=== PATIENT | female | born 1995 | race Caucasian/White ===

== ENCOUNTER 2020-10-11 04:31 | Inpatient (IN) | payer BC, SELFPAY ==
[2020-10-11] VITALS (22 sets, daily range): BP systolic 103–167; BP diastolic 42–83; PULSE 73–141; RESP 12–18; TEMP 36–37.3; O2SAT 95–99; BMI 32.2
[2020-10-11] MEDS: Lactated Ringers 1,000 ML 200 ML IV (04:59)
[2020-10-11 05:09] LABS: Absolute Lymphocyte Count 0.71 X10^3/uL (0.83-4.51); Absolute Neutrophil Count 17.1 X10^3/uL (2.0-7.7); Basophil# 0.04 X10^3/uL; Basophil% 0.2 % (0-1); Hematocrit 36.9 % (37-47); Lymphocyte # 0.71 X10^3/ul (0.83-4.51); Lymphocyte % 3.8 % (19-41); Mean Corp Hgb Conc 32.5 g/dL (32-36); Mean Corpuscular Hgb 29.1 pg (27.0-32.0); Mean Corpuscular Volume 89.3 fL (81-99); Mean Platelet Vol. 11.4 fl (6.2-12.0); Monocyte# 0.51 X10^3/uL; Monocyte% 2.7 % (0-10); NRBC Flagged by Analyzer 0 % (0-5); Neutrophil # 17.06 X10^3/uL (2.7-7.7); Neutrophil % 92.1 % (47-70); Platelet Count 190 K/mm3 (150-450); RBC Distribution Width CV 14.1 % (11.6-14.6); Red Blood Count 4.13 M/mm3 (4.2-5.4); White Blood Count 18.6 K/mm3 (4.4-11.0)
--- NOTE | 2020-10-11 05:47 | PCM.HP.OB ---
History Date of Admission: 10/11/20 Final BARAK: 10/13/20 Gestational age: 39 Weeks and 5 Days History of this : This is a 25 year-old female presents with ctxs. Allergies No Known Allergies Allergy (Verified 10/11/20 04:53) Alcohol: None Substance Use Type: Marijuana Number of Fetus(es): 1 NST - FHR Rate Baby A Baseline: 145 Variability:: Moderate Accelerations:: 15 x 15 Decelerations:: Variable Uterine Activity:: Q 2minutes History Past Pregnancies: Past Pregnancies Delivery Date Name GA/ Weeks Outcome Route Wt Infant Sex Labor Length Anesthesia Delivery Location Provider FOB Labs: See [facility] H[facility]P Physical Exam Vitals: Vital Signs Temp Pulse BP Pulse Ox 98.6 F 86 167/83 H 99 10/11/20 05:02 10/11/20 05:04 10/11/20 05:04 10/11/20 05:02 General: Alert, Oriented x3 Abdomen: Soft, Non Tender, Non-Distended, Gravid TELEVISION PRODUCER: Normal external genitalia Estimated gestational size: Appropriate for gestational size Presentation: Cephalic Cervix Dilation (cm): 10 Station: 1 Effacement (%): 100 Assessment/Plan This is a 25 year-old at 39&5 weeks gestational age. Admit to L&D Expectant management - patient complete & pushing Pain - declines epidural or other pain medications EFW - less than 4500g, patient with adequate pelvis GBS negative
[2020-10-11 06:52] LABS: International Normalized Ratio 1.1; Prothrombin Time (Protime)PT. 13.5 SECONDS (11.7-14.9)
[2020-10-11 06:53] LABS: Partial Thromboplast Time 24.6 Seconds (24.1-36.2)
[2020-10-11 07:06] LABS: AST(SGOT) 26 U/L (15-37); Alanine Aminotransfer ALT/SGPT 28 U/L (13-56); Creatinine, Serum 0.87 mg/dL (0.55-1.02); EST Glomerular Filtration Rate 84 mL/min (>60); Est Glom Filt Rate - Afr Amer 102 mL/min (>60); Estimated Creatinine Clearance 84.62 ml/min; Uric Acid 4.9 mg/dL (2.6-6.0)
--- NOTE | 2020-10-11 07:55 | PCM.OPRPT ---
Report of Operation Surgery/Procedure Performed:: Primary low transverse section Description of Surgical Findings:: Normal maternal uterus and adnexa Delivery Classification: KEREN Final BARAK: 10/13/20 Gestational age: 39 Weeks and 5 Days qa developer: Maite Gee Type of Anesthesia:: Spinal Date of Procedure: 10/11/20 Pre-Operative Diagnosis: (1) Failure to descend (2) bradycardia Post-Operative Diagnosis: Same Indications: Patient presented in labor. She was complete shortly after admission. She pushed for 3 hours with no head descent. Indications for : Failure of Descent Description of Procedure: Patient taken to OR where spinal anesthesia was placed. She was placed in the dorsal supine position with a leftward tilt. Unable to doppler FHR so TAUS was performed that showed FHR less than 100. Proceeded to perform STAT . Patient was quickly prepped & draped. After ensuring adequacy of anesthesia the Pfannensteil skin incision was made and carried through the underlying fascia. The rectus muscles were in the midline and the peritoneum was entered bluntly. The uterine incision was made with the scalpel and extended laterally w/ blunt dissection. The fetus was vertex and the head was brought to the incision in the flexed position. With good fundal pressure the head easily delivered. head was gently guided to allow delivery of anterior & posterior shoulders. No excess traction placed on head. Body delivered easily. The 3V cord was clamped & cut and the handed off to waiting RN. The placenta was delivered w/ gentle traction and fundal massage and the uterus was exteriorized and cleared of all clots and debris. The uterine incision was closed with 1 vicryl suture in a running locked fashion. A second layer monocryl was used to imbricate the first layer and obtain hemostasis. The uterus was returned to the peritoneal cavity which was cleared of all clots and debris. Pelvis was irrigated. The uterine incision was reexamined and found to be hemostatic. Some marilee was placed over the uterine incision due to the denuded areas. The parietal peritoneum was reapproximated with running vicryl suture. The fascia was closed with looped PDS suture in a running standard fashion. The subcutaneous tissue was examined, any bleeding bovie cauterized. The subcutaneous tissue was reapproximated with plain gut suture. The skin was closed in a subcuticular fashion by the AQUACULTURE AND FISHERIES PROFESSOR with me present in the labor and delivery suite. I performed the remainder of the procedure w/ assistance. Start time: 8:32 Stop time: 9:08 Amniotic Membrane Rupture Type: Spontaneous Amniotic Fluid Description: Clear Placenta Disposition: [facility] Drain: Anaya to straight drain Fluids Replaced: 1300ml Cord Entanglement: Around neck x 1, tight Nuchal Cord Compression: Without compression Cord Vessel Description: 3 Vessels Esitmated Blood Loss (ml): 900ml Gender: Female - Dara (1 minute): 8 (5 minute): 9 Delayed cord clamping: Yes Antibiotic Given: Ancef 2 grams IV x1, Zithromax 500 mg/5 mL X1 Complications: None - Admit VTE Documentation VTE Present on Admission: No VTE Mechan Device Prophylaxis: SCD's VTE Pharm Prophylaxis ordered?: Yes
[2020-10-11] MEDS: Acetaminophen 500 MG Tablet PO (07:59)
[2020-10-11] MEDS: Sodium Citrate/Citric Acid 30 ML UDC PO (07:59)
[2020-10-11] MEDS: Cefazolin 2 GM in 0.9% Normal Saline 100 ML IV (08:21)
[2020-10-11] MEDS: Ketorolac 30 MG/ML Syringe IV ×3 (10:15→22:33)
--- NOTE | 2020-10-11 10:40 | NURSING ---
Date and time of SROM unknown. Patient denies leaking of fluid while at home in labor. She denies noting any vaginal leaking of fluid in the past few days. When patient arrived to hospital in labor, her membranes had already been ruptured.
[2020-10-11] MEDS: Oxytocin 30 units/NS 500 ml 30 UNITS/500 ML IV.SOLN 167 UNITS IV (10:52)
[2020-10-11] MEDS: Lactated Ringers 1,000 ML 100 ML IV (14:10)
[2020-10-11] MEDS: Acetaminophen 500 MG Tablet 1000 MG PO ×2 (14:18→20:45)
[2020-10-11] MEDS: Enoxaparin 40 MG/0.4 ML Syringe SC (20:45)
[2020-10-12 00:51] VITALS: BP 129/62; PULSE 87; RESP 18; O2SAT 98
[2020-10-12] MEDS: Acetaminophen 500 MG Tablet 1000 MG PO ×3 (02:28→14:37)
[2020-10-12] MEDS: 0.9% Saline Lock 10 ML Syringe IV (04:04)
[2020-10-12] MEDS: Ketorolac 30 MG/ML Syringe IV (04:04)
[2020-10-12 04:09] VITALS: BP 115/43; PULSE 87; RESP 18; TEMP 36.6; O2SAT 95
[2020-10-12 04:31] LABS: Hematocrit 31.1 % (37-47); Hemoglobin 10.2 g/dL (12.0-15.0); Mean Corp Hgb Conc 32.8 g/dL (32-36); Mean Corpuscular Hgb 29.2 pg (27.0-32.0); Mean Corpuscular Volume 89.1 fL (81-99); Mean Platelet Vol. 11.4 fl (6.2-12.0); Platelet Count 167 K/mm3 (150-450); RBC Distribution Width CV 14.5 % (11.6-14.6); RBC Distribution Width SD 47.2 fl (35.1-43.9); Red Blood Count 3.49 M/mm3 (4.2-5.4); White Blood Count 16.2 K/mm3 (4.4-11.0)
[2020-10-12 08:26] VITALS: BP 117/69; PULSE 96; RESP 18; TEMP 36.6
[2020-10-12] MEDS: Senna/Docusate Sodium 1 Tablet PO (10:22)
[2020-10-12] MEDS: Ibuprofen 600 MG Tablet PO ×2 (10:22→16:30)
--- NOTE | 2020-10-12 12:25 | PCM.PN.OB ---
Subjective: Pain controlled - Physical Exam Vitals/I&O's: Vital Signs Temp Pulse Resp BP Pulse Ox 97.9 F 96 18 117/69 95 10/12/20 08:26 10/12/20 08:26 10/12/20 08:26 10/12/20 08:26 10/12/20 04:09 Oxygen Delivery Method Room Air Weight: 188 lb Body Mass Index (BMI) 32.2 Intake and Output for Last 24 Hours 10/10/20 10/11/20 10/12/20 23:59 23:59 23:59 Intake Total 2693.33 / 2693.33 Output Total 950 / 950 500 / 500 Balance 1743.33 / 1743.33 -500 / -500 General: Alert, Oriented x3 Abdomen: Soft, Non Tender, Non-Distended - ff mid & below umb; incision - bandage c/d/i Extremities: No Calf Tenderness Laboratory Results 10/12/20 04:20: WBC 16.2 H, RBC 3.49 L, Hgb 10.2 L, Hct 31.1 L, MCV 89.1, MCH 29.2, MCHC 32.8, RDW Std Deviation 47.2 H, RDW Coeff of Jacobo 14.5, Plt Count 167, MPV 11.4 Current Medications Acetaminophen (Acetaminophen 500 Mg Tablet) 1,000 mg PO Q6H [facility] Last Admin: 10/12/20 08:35 Dose: 1,000 mg Documented by: Bisacodyl (Bisacodyl 10 Mg Suppository) 10 mg RC UD PRN PRN Reason: If no BM Enoxaparin Sodium (Enoxaparin 40 Mg/0.4 Ml Syringe) 40 mg SC DAILY@2100 [facility] Last Admin: 10/11/20 20:45 Dose: 40 mg Documented by: Hydrocortisone (Hydrocortisone 2.5% Crm) 1 applic TOPICAL TID PRN PRN; Protocol PRN Reason: Discomfort Ibuprofen (Ibuprofen 600 Mg Tablet) 600 mg PO Q6H [facility] Last Admin: 10/12/20 10:22 Dose: 600 mg Documented by: Methylergonovine Maleate (Methylergonovine 0.2 Mg/Ml Ampul) 0.2 mg IM X1 PRN PRN Reason: Uterine Atony Naloxone HCl (Naloxone 0.4 Mg/Ml Syringe) 0.02 mg IV Q1M PRN PRN Reason: RR <10 and pt unresponsive Ondansetron HCl (Ondansetron 4 Mg/2 Ml Vial) 4 mg IV Q4H PRN PRN PRN Reason: Nausea Oxycodone HCl (Oxycodone 5 Mg Tablet) 5 - 10 mg PO Q4H PRN PRN PRN Reason: Pain Score 4-10 Prochlorperazine Edisylate (Prochlorperazine 10 Mg/2 Ml Vial) 10 mg IV Q6H PRN PRN PRN Reason: NAUSEA Senna/Docusate Sodium (Senna/Docusate Sodium 1 Tablet) 1 - 2 tablet PO DAILY [facility] Last Admin: 10/12/20 10:22 Dose: 1 tablet Documented by: Simethicone (Simethicone 80 Mg Tablet) 80 mg PO PCHS PRN PRN Reason: Indigestion/stomach pain Sodium Chloride (0.9% Saline Lock 10 Ml Syringe) 5 - 15 ml IV UD PRN PRN Reason: SALINE FLUSH Last Admin: 10/12/20 04:04 Dose: 10 ml Documented by: Medical Necessity - Tobacco Use Smoking Status: Never smoker Assessment/Plan POD#1 Pain - continue current meds - voiding well after fajardo removed Heme - HDS GI - tolerating regular diet Possible d/c home later today per patient request
--- NOTE | 2020-10-12 12:27 | DCINST_ITS ---
Discharge Diet: No Restrictions Discharge Activity: May Not Drive - for 1-2 weeks, May Shower May resume sexual activity in: 6 weeks Weight Bearing Status: Weight bearing as tolerated Call your doctor if your incision/area has: Continuous Slow Oozing, Sudden Inc reased Bleeding, Increased Pain/ Swelling, Increased Redness, Foul Smelling Discharge, Swelling at the incision site Additional Instructions: If you experience any of the following, contact your healthcare provider. * Bleeding that soaks a pad every hour for 2 hours * Fever 100.4 or higher * Unrelieved incision or abdominal pain * Swelling, redness, discharge or bleeding from your incision or episiotomy site * Your incision begins to separate * Problems urinating (including inability to urinate or burning while urinating). * Visual changes * Severe headache * Flu-like symptoms * Pain or redness in one of both of your breasts * Pain, warmth, tenderness or swelling in your legs, especially the calf area * Frequent nausea and vomiting * Symptoms of depression or anxiety If you experience any of the following, call 911 or go to the nearest Emergency Room. * Chest pain * Problems breathing * Seizure activity * Partial or complete paralysis of a body part, slurred speech, weakness or drooping of the face, or a sudden inability to walk or hold your balance Allergies/Adverse Reactions: Allergies No Known Allergies Allergy (Verified 10/11/20 04:53) Medications to take at Discharge Acetaminophen [Tylenol] 1,000 mg PO Q6H tablet 10/12/20 Ibuprofen [Motrin] 600 mg PO Q6H tablet 10/12/20 Follow-Up: Call to make an appointment with your doctor for an incision check in 1-2 weeks. You will also need a 6 week post- follow up appointment. Test results from this visit will be discussed in further detail at your follow- up appointment, if applicable.
--- NOTE | 2020-10-12 12:27 | PCM.DCCSEC ---
Discharge Diet: No Restrictions Discharge Activity: May Not Drive - for 1-2 weeks, May Shower May resume sexual activity in: 6 weeks Weight Bearing Status: Weight bearing as tolerated Call your doctor if your incision/area has: Continuous Slow Oozing, Sudden Increased Bleeding, Increased Pain/ Swelling, Increased Redness, Foul Smelling Discharge, Swelling at the incision site Additional Instructions: If you experience any of the following, contact your healthcare provider. Bleeding that soaks a pad every hour for 2 hours Fever 100.4 or higher Unrelieved incision or abdominal pain Swelling, redness, discharge or bleeding from your incision or episiotomy site Your incision begins to separate Problems urinating (including inability to urinate or burning while urinating). Visual changes Severe headache Flu-like symptoms Pain or redness in one of both of your breasts Pain, warmth, tenderness or swelling in your legs, especially the calf area Frequent nausea and vomiting Symptoms of depression or anxiety If you experience any of the following, call 911 or go to the nearest Emergency Room. Chest pain Problems breathing Seizure activity Partial or complete paralysis of a body part, slurred speech, weakness or drooping of the face, or a sudden inability to walk or hold your balance Allergies/Adverse Reactions: Allergies No Known Allergies Allergy (Verified 10/11/20 04:53) Medications to take at Discharge Acetaminophen [Tylenol] 1,000 mg PO Q6H tablet 10/12/20 Ibuprofen [Motrin] 600 mg PO Q6H tablet 10/12/20 Follow-Up: Call to make an appointment with your doctor for an incision check in 1-2 weeks. You will also need a 6 week post- follow up appointment. Test results from this visit will be discussed in further detail at your follow-up appointment, if applicable.
[2020-10-12 14:06] VITALS: BP 135/80; PULSE 101; RESP 18; TEMP 36.8
--- NOTE | 2020-10-13 11:30 | CASEMGMT ---
SOCIAL WORK BRIEF ASSESSMENT Labor and Delivery Unit Date of Referral/Notification: 10/12/20 Reason for Referral: History of THC use Date of Intervention: 10/13/20 Time of Intervention: 11:30a Informant: Medical record and mother of baby (MOB) Assessment: Received voicemail from nursing requesting follow up with patient due to history of THC use. Nursing reported no concerns with MOB or care of baby. MOB and baby discharged on 10/12/20. Call to MOB, introduced role and reason for referral. MOB reports she and baby are doing well and had first doctor's appointment yesterday. MOB admits to marijuana use prior to and reports I quit before I was even . MOB denies any issues with mental health or substance use. MOB reports to have all needs met for girl, Dara. MOB states good support from and family. MOB voices no questions or concerns. No further needs requested or indicated Jim Quinn, MANAGER MEDICAL WRITING, BUILDER BEAM
== END 2020-10-12 16:50 | disposition home or self-care (01) | DRG 788 ==
LOC: WPOUT 04:47 → WP 04:49 → WPOUT 04:49 → WP 04:49
PROVIDERS: Admitting Provider Obstetrics & Gynecology; Visit Provider Obstetrics & Gynecology
DX: O32.4XX0 Maternal care for high head at term, not applicable or unspecified (principal); O69.81X0 Labor and delivery complicated by cord around neck, without compression, not applicable or unspecified; Z3A.39 39 weeks gestation of pregnancy; Z37.0 Single live birth
CPT/HCPCS: 59025; 59050; 82565; 84450; 84460; 84550; 85025; 85027; 85610; 85730; 86850; 86900; 86901; 99218; J7120; A4216; G0378

== ENCOUNTER 2022-07-29 11:40 | Inpatient (IN) | payer MEDICAID, BC, SELFPAY ==
[2022-07-29] VITALS (18 sets, daily range): BP systolic 94–124; BP diastolic 48–71; PULSE 74–97; RESP 16–21; TEMP 36.2–36.8; O2SAT 95–99; BMI 33.2
[2022-07-29 11:38] LABS: ROM Internal Control Test YES-OK TO RESULT pt. (Internal QC); ROM Patient Test POSITIVE (Negative)
[2022-07-29] MEDS: Lactated Ringers 1,000 ML 999 ML IV (12:10)
[2022-07-29 12:23] LABS: Absolute Lymphocyte Count 1.26 X10^3/uL (0.83-4.51); Absolute Neutrophil Count 7.6 X10^3/uL (2.0-7.7); Basophil# 0.04 X10^3/uL; Basophil% 0.4 % (0-1); Eosinophil# 0.03 X10^3/uL; Eosinophils% 0.3 % (0-5); Hemoglobin 10.9 g/dL (12.0-15.0); Lymphocyte # 1.26 X10^3/ul (0.83-4.51); Lymphocyte % 12.8 % (19-41); Mean Corp Hgb Conc 32.1 g/dL (32-36); Mean Corpuscular Hgb 25.7 pg (27.0-32.0); Mean Corpuscular Volume 80.2 fL (81-99); Mean Platelet Vol. 11.4 fl (6.2-12.0); Monocyte# 0.76 X10^3/uL; Monocyte% 7.7 % (0-10); NRBC Flagged by Analyzer 0 % (0-5); Neutrophil # 7.59 X10^3/uL (2.7-7.7); Neutrophil % 76.8 % (47-70); Platelet Count 212 K/mm3 (150-450); RBC Distribution Width SD 46.3 fl (35.1-43.9); Red Blood Count 4.24 M/mm3 (4.2-5.4); White Blood Count 9.9 K/mm3 (4.4-11.0)
[2022-07-29] MEDS: Lactated Ringers 1,000 ML 150 ML IV (13:14)
[2022-07-29] MEDS: Acetaminophen 500 MG Tablet 1000 MG PO ×2 (14:15→20:24)
[2022-07-29] MEDS: Sodium Citrate/Citric Acid 30 ML UDC PO (15:08)
[2022-07-29] MEDS: Cefazolin 2 GM in 0.9% Normal Saline 100 ML IV (15:18)
--- NOTE | 2022-07-29 15:21 | PCM.HP.BLA ---
History and Physical Date of Admission: 07/29/22 Pre-Op History and Physical ? HPI: The patient is a 26 year old female presenting for pre-operative visit. She is scheduled for , and bilateral salpingectomy for elective repeat cs and desires sterilization on 08/04/22. Procedure discussed along with risks, benefits and complications. Other alternatives discussed for management. Consent form signed? Yes. ? ? PAST MEDICAL HISTORYExpand by Default PAST MEDICAL HISTORY Diagnosis Date ? Anemia during in third trimester 07/28/2020 ? Miscarriage ? ? ? PAST SURGICAL HISTORYExpand by Default PAST SURGICAL HISTORY Procedure Laterality Date ? DELIVERY ONLY ? 10/11/2020 ? LTCS ? D&C DIAGNOSTIC OR THERA - IPAS ? CURRENT MEDICATIONSExpand by Default Current Outpatient Medications Medication Sig Dispense Refill ? cholecalciferol, vitamin D3, (VITAMIN D3 ORAL) Take by mouth. ? ? ? Zlbdvdqv-Ed-Fhy-Fe-FA ( VITAMIN) tab Take 1 tablet by mouth. ? ? ? No current facility-administered medications for this visit. ? ? ALLERGIES: Patient has no known allergies. ? PERSONAL HISTORY: SOCIAL HISTORYExpand by Default Social History ? Tobacco Use ? Smoking status: Never ? Smokeless tobacco: Never Vaping Use ? Vaping Use: Never used Substance Use Topics ? Alcohol use: Not Currently ? ? Comment: occasional ? Drug use: Never ? FAMILY HISTORY: FAMILY HISTORYExpand by Default FAMILY HISTORY Problem Relation Age of Onset ? No Known Problems Mother ? ? No Known Problems Father ? ? Depression Sister ? ? No Known Problems Brother ? ? No Known Problems Brother ? ? No Known Problems Maternal Grandmother ? ? Hypertension Paternal Grandmother ? ? other (Diverticulitis) Paternal Grandmother ? ? Hypertension Paternal Grandfather ? ? Arthritis Paternal Grandfather ? ? No Known Problems Daughter ? ? ? REVIEW OF SYMPTOMS: negative except as noted above PHYSICAL EXAMINATION: ? VITALS: Blood pressure 112/64, weight 187 lb (84.8 kg), last menstrual period 11/04/2021, currently . ? GENERAL: The patient is well nourished, well hydrated in no acute distress. , The patient is oriented to time, place, and person. NECK: full range of motion ABD: gravid, non tender ? IMPRESSION: 39 weeks elective repeat cs, desires sterilization ? PLAN: repeat cs and bilateral salpingectomy ? Pt has been counseled on risks/benefits and alternatives of surgery including but not limited to anesthesia, bleeding, infection, injury to pelvic structures including bowel, bladder, ureters and vessels. Pt wishes to proceed with surgery at this time. Risk of transfusion reviewed. permanency reviewed and risk of regret reviewed with salpingectomy. ? Pre and post op instructions reviewed ? I have reviewed and updated past medical and surgical history, medications and allergies Aylin Ignacio MD Assessment & Plan Assessment/Plan (1) 38 weeks gestation of : (2) History of section: (3) Request for sterilization:
--- NOTE | 2022-07-29 16:35 | OP.PCM_ITS ---
Problems Associated Problem List Diagnoses (1) Request for sterilization: (2) History of section: (3) 38 weeks gestation of : (4) SROM (spontaneous rupture of membranes): Report of Operation Date of Procedure: 07/29/22 Pre-Operative Diagnosis: 38 week gestation, single IUP, history prior section, request for sterilization, SROM Post-Operative Diagnosis: As above Surgery/Procedure Performed:: RLTCS via pfannenstiel incision Bilateral salpingectomy Description of Surgical Findings:: Moderate amount of adhesive disease: fascia dense and adhered to rectus muscles, omentum adhered to the peritoneum, bladder adhered to uterus, thin lower uterine segment. VMI in cephalic presentation weighing 8 lb 1 oz with apgars 8, 9. Normal appearing placenta with 3 VC. Normal appearing uterus and bilateral adnexa. Surgeon: Kely Hsu electronic organ mechanic: Pranay ESQUEDA Type of Anesthesia: Spinal Special Medications: None Specimen's removed: Placenta Bilateral fallopian tubes Drains: Fajardo Estimated Blood Loss (mL): 500 Fluids Replaced: 1300 Description of Procedure: The patient was taken to the operating room where spinal anesthesia was induced. She was prepped and draped in the dorsal position with a leftward tilt. A Pfannenstiel skin incision was made using the scalpel and this was carried down to the underlying layer of fascia. The subcutaneous tissue was dense and scarred. The fascia was incised in midline. The fascia was dissected laterally using Rae scissors and noted to be dense and adhered to the rectus muscles. The fascia was adhered to the rectus muscles and minimally dissected cephalad and caudad off the rectus muscles. The rectus muscles were in the midline. The peritoneum was entered bluntly with good visualization of the bladder. A sweep was performed with no peritoneal adhesions noted to the uterus. The peritoneal incision was extended bluntly with traction. A bladder blade was inserted. The bladder was adhered to the lower uterine segment. A low transverse incision was made on the uterus away from the bladder using a scalpel. The uterine incision was extended using traction both cephalad and caudad. The lower uterine segment was noted to be thin. The head was elevated, flexed and delivered through the hysterotomy. The shoulders were delivered followed by the body without any force, delayed, or traction. A vigorous viable male infant was delivered atraumatically. The cord was clamped and cut after a slight delay. The vigorous was handed off to the awaiting nursery staff. The placenta was removed with manual extraction. The uterus was cleared of all clot and debris. The uterus was exteriorized. The hysterotomy was closed with 1-0 Vicryl in a running locked fashion. The patient confirmed she desired sterilization. The left fallopian tube was followed out to the fimbriated end and elevated using [place] clamps. Using the LigaSure d evice the mesosalpinx was serially clamped, cauterized, and transected until reaching level of the cornua. Once at the level of the cornua the fallopian tube was transected and removed. The same was performed on the right. The right fallopian tube was elevated and followed out to the fimbriated end using [place] clamps. The LigaSure device was then used to serially clamp, cauterize, and transect the mesosalpinx until reaching level of the cornua. Once at the level of the cornua the fallopian tube was transected and removed. The bilateral fallopian tubes were sent to pathology for review. Hemostasis was noted. The uterus was placed back into the abdomen. 2 additional [id number] sutures sutures were placed using 1-0 Vicryl along the left side of the hysterotomy for hemostasis. Hemostasis was confirmed of the adnexa and hysterotomy. The fajardo was noted to be draining clear urine. Omental adhesions were noted to the peritoneum with several holes in the omentum noted. Using the Bovie cautery the holes in the omentum were opened using the Bovie cautery, so that there were no holes or closed loops in the omentum. Hemostasis of the omentum was noted. The peritoneum was unable to be closed due to omental lesions to the left side of the peritoneum. The rectus muscles were hemostatic. The fascia was closed with strata fix in a running fashion. The subcutaneous space was irrigated and made hemostatic with Bovie cautery. Subcutaneous space was reapproximated using 3-0 Vicryl. The skin was closed with 4 Monocryl in subcuticular fashion. A dressing was placed. Instrument, sharp, sponge counts were correct. The patient was taken to the recovery room in stable condition. Delivery time: 1545 The marketing operations assistant Pranay ESQUEDA was present for the entire case and assisted with draping the patient, delivery of the , and closure. Grafts/Implants Used: None Procedure Start Time: 15:37 Complications None Admit VTE Documentation VTE Present on Admission: No VTE Mechan Device Prophylaxis: SCD's
[2022-07-29] MEDS: Oxytocin 15 Units/NS 250ml 15 UNITS/250 ML IV.SOLN 83 UNITS IV (17:04)
[2022-07-29] MEDS: Ketorolac 30 MG/ML Syringe IV ×2 (17:23→23:15)
[2022-07-29] MEDS: 0.9% Saline Lock 10 ML Syringe IV ×2 (17:23→23:31)
--- NOTE | 2022-07-29 17:36 | NURSING ---
ligasure Lot#: [id number] exp: 10/18/26
--- NOTE | 2022-07-29 18:07 | FALS_PTH ---
PATIENT: GRECIA MCADAMS LOC: [facility] U#:[id number] AGE/SX: 26/F ROOM: WP010 RE07/29/[address]: Dr. Kely Hsu DO : 1995 BED: 1 DIS: 07/30/2022 SPEC #: [id number] RECD: 07/30/22 08:07 STATUS: CATIE BHASKAR #: [id number] NINFA: 07/29/22 18:[address]: Kely Hsu DEPT: SURGICAL PATHOLOGY RECD BY: Lupe Amezquita Tissues: Fallopian tube Procedures: Surgery Specimen Level II HEADER OPERATION: Tubal ligation PRE-OP DIAGNOSIS: Sterilization TISSUE SUBMITTED: Bilateral fallopian tubes MICROSCOPIC DIAGNOSIS Bilateral fallopian tubes, salpingectomy: Bilateral fallopian tubes, no pathologic diagnosis. RHINA:jocelyn 08/02/2022 MICROSCOPIC DESCRIPTION Slides are reviewed. GROSS DESCRIPTION Received in fixative is one container labeled with the patient's name and designated bilateral fallopian tubes, right with suture. The specimen consists of two fallopian tubes with an average length of 6 cm and has an average diameter of 0.7 cm. Both fallopian tubes have normal fimbriated ends. No mass lesions are identified. Tar And Ammonia Pump Operator sections are submitted in two cassettes as follows: 1 - right fallopian tube, 2 - left fallopian tube. / AM:jocelyn 07/30/2022 TC:4 CPT: 59331 x2
[2022-07-29 18:13] LABS: Pathology Specimen OB SEE PATHOLOGY REPORT
[2022-07-29] MEDS: Lactated Ringers 1,000 ML 100 ML IV (20:25)
[2022-07-30] VITALS (7 sets, daily range): BP systolic 97–125; BP diastolic 46–64; PULSE 64–99; RESP 16–18; TEMP 36.2–37; O2SAT 96–99
[2022-07-30] MEDS: Acetaminophen 500 MG Tablet 1000 MG PO ×3 (01:15→15:48)
[2022-07-30] MEDS: Ketorolac 30 MG/ML Syringe IV ×2 (04:18→11:39)
[2022-07-30] MEDS: 0.9% Saline Lock 10 ML Syringe IV ×2 (04:19→11:39)
[2022-07-30 04:35] LABS: Hematocrit 27.8 % (37-47); Hemoglobin 8.5 g/dL (12.0-15.0); Mean Corp Hgb Conc 30.6 g/dL (32-36); Mean Corpuscular Hgb 24.9 pg (27.0-32.0); Mean Corpuscular Volume 81.5 fL (81-99); Mean Platelet Vol. 11.4 fl (6.2-12.0); Platelet Count 178 K/mm3 (150-450); RBC Distribution Width CV 16.1 % (11.6-14.6); RBC Distribution Width SD 46.9 fl (35.1-43.9); Red Blood Count 3.41 M/mm3 (4.2-5.4); White Blood Count 12.4 K/mm3 (4.4-11.0)
--- NOTE | 2022-07-30 05:15 | NURSING ---
report given to Duran Choi RN who is assuming care of pt at this time
--- NOTE | 2022-07-30 08:27 | PN.OBGYN_ITS ---
Subjective Subjective Doing well per patient and nursing staff. Ambulating and taking PO without difficulty. Voiding and passing flatus. Pain controlled. , services for assistance. Denies headache, visual changes, chest pain, shortness of breath, leg pain or increased bleeding. Lochia normal. Objective Data Objective Data Vital Signs: Vital Signs Temp Pulse Resp BP Pulse Ox O2 Del Method 97.1 F L 66 16 104/59 L 98 Room Air 07/30/22 07:35 07/30/22 07:35 07/30/22 07:35 07/30/22 07:35 07/30/22 07:35 07/30/22 07:35 Oxygen Delivery Method Room Air Weight: 187 lb 6.287 oz Body Mass Index (BMI) 33.2 Intake & Output: Intake and Output for Last 24 Hours 07/28/22 07/29/22 07/30/22 23:59 23:59 23:59 Intake Total 2173.33 / 2173.33 Output Total 850 / 850 300 / 300 Balance 1323.33 / 1323.33 -300 / -300 Lab / Micro Data Result Diagrams: 07/30/22 04:30 Labs: Laboratory Results - last 24 hr 07/29/22 11:25: Vag Amniotic Fld Detect POSITIVE H 07/29/22 12:10: WBC 9.9, RBC 4.24, Hgb 10.9 L, Hct 34.0 L, MCV 80.2 L, MCH 25.7 L, MCHC 32.1, RDW Std Deviation 46.3 H, RDW Coeff of Jacobo 16.0 H, Plt Count 212, MPV 11.4, Immature Gran % (Auto) 2.000 H, Neut % (Auto) 76.8 H, Lymph % (Auto) 12.8 L, [place] % (Auto) 7.7, Eos % (Auto) 0.3, Baso % (Auto) 0.4, Absolute Neuts (auto) 7.6, Absolute Lymphs (auto) 1.26, Nucleated RBC % 0 07/29/22 12:10: Blood Type AB POSITIVE, Antibody Screen NEGATIVE 07/30/22 04:30: WBC 12.4 H, RBC 3.41 L, Hgb 8.5 L, Hct 27.8 L, MCV 81.5, MCH 24.9 L, MCHC 30.6 L, RDW Std Deviation 46.9 H, RDW Coeff of Jacobo 16.1 H, Plt Count 178, MPV 11.4 ROS Constitutional Constitutional: Reports systems reviewed and no addt'l complaints, except as documented; Denies headache(s) Eyes Eyes: Denies acute decrease in peripheral vision, blurry vision or change in vision ENT HEENT: Reports systems reviewed and no addt'l complaints, except as documented Cardiovascular Cardiovascular: Denies chest pain or dizziness Respiratory/Chest Respiratory/Chest: Denies cough, dyspnea, dyspnea on exertion, shortness of breath at rest or shortness of breath with exertion Gastrointestinal Gastrointestinal: Denies abdominal pain, diarrhea, nausea or vomiting Genitourinary Genitourinary: Denies abdominal discomfort Musculoskeletal Musculoskeletal: Denies limited range of motion Integumentary Integumentary: Reports systems reviewed and no addt'l complaints, except as documented Neurologic Neurologic: Reports systems reviewed and no addt'l complaints, except as documented Psychiatric Psychiatric: Reports systems reviewed and no addt'l complaints, except as documented Endocrine Endocrinology: Reports systems reviewed and no addt'l complaints, except as documented Hematologic/Lymphatic Hematologic/Lymphatic: Reports systems reviewed and no addt'l complaints, except as documented Allergic/Immunologic Allergic/Immunologic: Reports systems reviewed and no addt'l complaints, except as documented Physical Exam Const alert and oriented x3 General Appearance: cooperative Orientation / Consciousness: awake, oriented to person, oriented to place and oriented to time Exam Limitations: no limitations HEENT normocephalic Head and Scalp: normal to inspection, normocephalic and atraumatic Face and Sinus: normal facial exam Eyes General Eye: normal appearance of both eyes Neck full ROM Chest Chest: symmetrical chest wall rise Resp normal respiratory effort and normal air movement Auscultation: clear to auscultation bilaterally Cardio regular rate, regular rhythm, S1 normal heart sound, S2 normal heart sound, no murmurs, no rub, no gallops and no clicks GI normal to inspection, nondistended, normoactive bowel sounds and non-tender appearance of the vagina normal Narrative: dressing dry and intact, fundus firm 2 below U Bladder / Kidney Exam: no CVA tenderness Back/Spine normal ROM Extremity normal to inspection and full ROM Skin no rashes or lesions noted Neuro oriented x3, CN's II-XII intact bilaterally and moves all extremities Sensorium / Orientation: awake, alert and oriented to person Motor Exam: clonus absent Deep Tendon Reflexes: Rt Patellar (L4): 2+ and Lt Patellar (L4): 2+ Assessment & Plan (1) SROM (spontaneous rupture of membranes): (2) Request for sterilization: (3) Lactating mother: (4) Delivery by section: PLAN: POD #1 PLAN: Plan 1) Routine postoperative care 2) I&O 3) Pain management 4) Vitals stable 5) Anemia 325mg ferrous sulfate PO once daily 6) Would like D/C home today 7) Follow up in 1 wk for incision check and 6 week PP visit
--- NOTE | 2022-07-30 08:46 | PCM.DC.SUM ---
Providers Date of Admission: 07/29/22 Diagnosis Discharge Diagnosis (1) SROM (spontaneous rupture of membranes): Status: Acute (2) Request for sterilization: Status: Acute Code(s): Z30.2 - Encounter for sterilization (3) Lactating mother: Status: Acute Code(s): Z39.1 - Encounter for care and examination of lactating mother (4) Delivery by section: Status: Acute Plan: POD #1 Medications at Discharge Home Medications vitamin #56-iron 35 mg and 5 mg-folic acid 1 mg-dha capsule 1 cap DAILY Check with primary doctor 07/29/22 acetaminophen 500 mg tablet 1,000 mg PO Q6H #0 tabs 07/30/22 ferrous sulfate 325 mg (65 mg iron) tablet (FeroSul) 325 mg PO DAILY@1200 #30 tabs 07/30/22 ibuprofen 600 mg tablet 600 mg PO Q6H #60 tabs 07/30/22 sennosides 8.6 mg-docusate sodium 50 mg tablet (Stool Softener-Stimulant Laxative) 1 - 2 tab PO DAILY #30 tabs 07/30/22 Hospital Course Summary of Care Provided Hospital Course: Presented on 07/29/22 for spontaneous rupture of membranes. Was scheduled for repeat section with bilateral tubal ligation. Underwent repeat Low transverse section with bilateral salpingectomy by . Postoperative course with acute blood loss anemia. Discharge home on postoperative day #1 per patient request Weight / BMI Weight Weight: 187 lb 6.287 oz Body Mass Index (BMI) 33.2 ABG / Lab / Microbiology Data Result Diagrams: 07/30/22 04:30 Laboratory: Laboratory Results - last 24 hr 07/29/22 11:25: Vag Amniotic Fld Detect POSITIVE H 07/29/22 12:10: WBC 9.9, RBC 4.24, Hgb 10.9 L, Hct 34.0 L, MCV 80.2 L, MCH 25.7 L, MCHC 32.1, RDW Std Deviation 46.3 H, RDW Coeff of Jacobo 16.0 H, Plt Count 212, MPV 11.4, Immature Gran % (Auto) 2.000 H, Neut % (Auto) 76.8 H, Lymph % (Auto) 12.8 L, [place] % (Auto) 7.7, Eos % (Auto) 0.3, Baso % (Auto) 0.4, Absolute Neuts (auto) 7.6, Absolute Lymphs (auto) 1.26, Nucleated RBC % 0 07/29/22 12:10: Blood Type AB POSITIVE, Antibody Screen NEGATIVE 07/30/22 04:30: WBC 12.4 H, RBC 3.41 L, Hgb 8.5 L, Hct 27.8 L, MCV 81.5, MCH 24.9 L, MCHC 30.6 L, RDW Std Deviation 46.9 H, RDW Coeff of Jacobo 16.1 H, Plt Count 178, MPV 11.4 Meaningful Use Info Meaningful Use Diagnoses (Choose all that apply): None applicable Discharge Plan Admission Admit Date/Time: 07/29/22 11:40 Primary Reason for Your Visit: section. Tubal ligation Attending Provider: Kely Hsu Instructions Patient Instructions: After a Discharge Orders/Prescriptions Prescriptions: New acetaminophen 500 mg Tablet 1,000 mg PO Q6H Qty: 0 0RF ferrous sulfate [FeroSul] 325 mg (65 mg iron) Tablet 325 mg PO DAILY@1200 Qty: 30 1RF ibuprofen 600 mg Tablet 600 mg PO Q6H Qty: 60 0RF sennosides-docusate sodium [Stool Softener-Stimulant Laxat] 8.6-50 mg Tablet 1 - 2 tab PO DAILY Qty: 30 0RF Continued PNV #[id number] acid-dha 35 mg iron-5 mg iron-1 mg Capsule 1 cap DAILY Discontinued acetaminophen 500 MG tablet 1,000 mg PO Q6H 0RF ibuprofen 600 MG tablet 600 mg PO Q6H 0RF iron 40 mg Capsule 1 mg PO DAILY Referrals / Follow Up: Kelly Yee CNM [Med Staff - Adv Practice Prof] - Kely Hsu DO [Med Staff - Active Staff] - (appointment in 1-2 weeks for incision check and 6 week PP visit) Disposition Disposition (needs filled in before D/C Order can be placed): Home, Self Care
[2022-07-30] MEDS: Senna/Docusate Sodium 1 Tablet PO (10:09)
[2022-07-30] MEDS: Ferrous Sulfate 325 MG Tablet PO (11:39)
[2022-07-30] MEDS: Ibuprofen 600 MG Tablet PO (17:57)
== END 2022-07-30 19:00 | disposition home or self-care (01) | DRG 539 ==
LOC: WPOUT 11:40 → WP 11:40
PROVIDERS: Admitting Provider Obstetrics & Gynecology; Referring Provider Obstetrics & Gynecology; Visit Provider Obstetrics & Gynecology
DX: O34.211 Maternal care for low transverse scar from previous cesarean delivery (principal); Z30.2 Encounter for sterilization; Z37.0 Single live birth; Z3A.38 38 weeks gestation of pregnancy
CPT/HCPCS: 59025; 59050; 84112; 85025; 85027; 86850; 86900; 86901; 88302; 99221; 99252; J7120; A4216; G0378; G0463; J2405